=== PATIENT | male | born 1955 | race Caucasian/White ===

== ENCOUNTER 2017-08-15 05:05 | Day surgery (SDC) | payer OTHER ==
[2017-08-11 11:42] VITALS: BMI 32.1
--- NOTE | 2017-08-15 08:18 | HP ---
[facility] - Chief Complaint Chief Complaint: left knee pain - Past Medical History Allergies/Adverse Reactions: Allergies Allergy/AdvReac Type Severity Reaction Status Date / Time No Known Drug Allergies Allergy Verified 08/11/17 11:42 - Current Medications Current Medications: Home Medications Medication Instructions Recorded Phenytoin Na Extended [Dilantin -] 500 mg PO DAILY 08/11/17 Oxycodone HCl/Acetaminophen 1 tab PO Q6H #20 tablet MDD 4 08/15/17 [Percocet 5-325 mg Tablet] [facility] Physical Exam - Physical Examination General Appearance: Well Nourished, Well Developed, Alert & Oriented x3 ENT: Clear Lung: Normal air movement Heart: Regular rate & rhythm Extremities: Other (left knee- + swelling, + ttp, decr rom, +mcmurrays, nvi MRI + mmt) Neurological: Intact, Alert, Oriented [facility] Impression/Plan - Impression/Plan Impression: left knee internal derangement Operative Procedure: left knee arthroscopy Date to be Performed: 08/15/17
[2017-08-15] MEDS ORDERED: oxyCODONE HCL 5 MG TABLET PO PRN ×2 (11:10)
[2017-08-15] MEDS ORDERED: ONDANSETRON 4 MG/2 ML VIAL IVPUSH PRN (11:10)
[2017-08-15] MEDS ORDERED: LACTATED RINGERS SOLUTION 1,000 ML IV SCH (11:15)
[2017-08-15] MEDS ORDERED: LIDOCAINE 1%/EPI 1:100000 (20 ML MULTI DOSE VIAL) ONE (11:21)
[2017-08-15] MEDS ORDERED: MIDAZOLAM HCL 2 MG/2 ML SINGLE DOSE VIAL ONE (12:34)
[2017-08-15] MEDS ORDERED: PROPOFOL 20 ML ONE (12:34)
[2017-08-15] MEDS ORDERED: LIDOCAINE 1%/EPI 1:100000 (20 ML MULTI DOSE VIAL) IJ ONE (12:40)
[2017-08-15] MEDS ORDERED: BUPIVACAINE HCL/PF (5 MG/ML) 30 ML VIAL IJ ONE ×3 (12:40→12:55)
[2017-08-15] MEDS ORDERED: LIDOCAINE HCL 1%, 10 MG/ML (20ML VIAL) PNB ONE ×2 (12:45→12:55)
[2017-08-15] MEDS ORDERED: LIDOCAINE HCL 1%, 10 MG/ML (20ML VIAL) INF ONE (12:50)
--- NOTE | 2017-08-15 13:07 | OP ---
Operative Note - Note: Operative Date: 08/15/17 ([facility]) Pre-Operative Diagnosis: left knee internal derangement Operation: left knee arthroscopy with PMM Post-Operative Diagnosis: Same as Pre-op Surgeon: Jarvis Osborne General Maintenance Technician: Cabrera Milan Anesthesiologist/CONTINUOUS YARN DYEING MACHINE OPERATOR: Crow Alvarez Anesthesia: General, Local Specimens Removed: shavings Estimated Blood Loss (mls): 5 Operative Report Dictated: Yes
--- NOTE | 2017-08-15 14:12 | SPEC ---
DATE OF OPERATION: 08/15/2017 PREOPERATIVE DIAGNOSIS: Internal derangement, left knee. POSTOPERATIVE DIAGNOSIS: Internal derangement, left knee. PROCEDURE: Left knee arthroscopy, partial medial meniscectomy. SURGICAL ATTENDING: Jarvis Osborne MD SENIOR OFFICER: No executive chef assistant. ANESTHESIA: General with LMA. CLOSURE: Nylon 4-0. COMPLICATIONS: None. CONDITION: To recovery room in stable condition. DESCRIPTION OF OPERATIVE PROCEDURE: Patient was taken to the operating room on August 15, 2017. General anesthesia with LMA was administered by the anesthesiologist. The left lower extremity was prepped and draped in the usual sterile fashion. The medial and lateral infrapatellar portal sites were infiltrated with 1% Xylocaine with epinephrine. Both portals were then made with a 15 blade followed by a blunt trocar. The scope was placed in the lateral infrapatellar portal and up into the suprapatellar pouch. The knee was inflated with a cocktail of 10 mL of 1% Xylocaine, 10 mL of 0.5% Marcaine, and 20 mL of arthroscopic saline. This was allowed to sit in the knee for a few minutes to allow the anesthetic to work intraarticularly. The scope was placed in the lateral infrapatellar portal and up into the suprapatellar pouch. The pouch was visualized to be clean. The medial and lateral gutters were visualized to be clean. The undersurface of the patella and trochlea were visualized to be intact. With valgus stress on the knee, the medial compartment was entered. The medial meniscus was visualized, probed, and found to have a complex tear of the posterior horn. This was debrided back to smooth stable meniscal tissue using a meniscal biter and arthroscopic shaver. The medial femoral condyle was run and found to be intact as well as the medial tibial plateau. At 90 degrees, the ACL was visualized, probed, and found to be intact. In the figure-4 position, the lateral compartment was entered. The lateral meniscus was visualized, probed, and found to be intact. The lateral femoral condyle was run and found to be intact as was the lateral tibial plateau. The knee was irrigated with copious amounts of irrigation and then the fluid was drained. The inferomedial portal was closed then with 4-0 nylon. Prior to pulling the trocar from the lateral infrapatellar portal, 20 mL of 0.5% Marcaine was infused into the knee for postoperative analgesia. The trocar was then pulled and the incision was closed with 4-0 nylon suture. A sterile pressure dressing was applied. Patient awakened from anesthesia and transferred to recovery in stable condition. No complication. Estimated blood loss negligible. Olegario BARCENAS/[id number]
[2017-08-15 15:59] VITALS: BP 120/70; PULSE 68
[2017-08-15 17:16] VITALS: TEMP 98.5
--- NOTE | 2017-08-19 14:11 | PATH ---
Surgical Pathology Report Patient Name: LUCIA WILBURN [facility]. Rec. #: [id number] /Age/Gender: 1955 (Age: 62) / M Account: [id number] Location: [facility] Taken: 08/15/2017 Received: 08/15/2017 Reported: 08/19/2017 Physicians: Jarvis Osborne M.D. Specimen(s) Received LEFT KNEE SHAVINGS Clinical History Left knee tear Final Diagnosis LEFT KNEE, SHAVINGS: SYNOVIAL TISSUE AND FIBROCARTILAGINOUS TISSUE WITH DEGENERATIVE CHANGE. Electronically Signed García Orozco M.D. Gross Description Received in formalin, labeled "left knee shavings," is a 4.0 x 2.0 x 0.3 cm. aggregate of espitia-yellow soft tissue fragments. A entry level account representative portion is submitted in one cassette. /08/15/2017 saudi/08/15/2017
== END 2017-08-15 15:59 | disposition home or self-care (01) ==
LOC: JASU-SURG 05:05
PROVIDERS: ATTEND Orthopaedic Surgery
PROC: 0SBD4ZZ Excision of Left Knee Joint, Percutaneous Endoscopic Approach (ICD-10-PCS; principal; 2017-08-15 12:30)
DX: M23.307 Other meniscus derangements, unspecified meniscus, left knee (principal)
CPT/HCPCS: 88304-TC; 94760; 97116-GP

== ENCOUNTER 2020-08-04 04:19 | Day surgery (SDC) | payer OTHER ==
[2020-08-04] MEDS ORDERED: BUPIVACAINE HCL 150 ML ONE (07:16)
[2020-08-04] MEDS ORDERED: LIDOCAINE 1%/EPI 1:100000 (50 ML MULTI DOSE VIAL) ONE (07:21)
[2020-08-04] MEDS ORDERED: MIDAZOLAM HCL 2 MG/2 ML SINGLE DOSE VIAL ONE (07:53)
[2020-08-04] MEDS ORDERED: PROPOFOL 20 ML ONE (07:53)
[2020-08-04] MEDS ORDERED: SUCCINYLCHOLINE CHLORIDE 200 MG/10 ML SYRINGE ONE (07:54)
[2020-08-04] MEDS ORDERED: LIDOCAINE 1%/EPI 1:100000 (20 ML MULTI DOSE VIAL) INF ONE (08:20)
[2020-08-04] MEDS ORDERED: LIDOCAINE 1%/EPI 1:100000 (20 ML MULTI DOSE VIAL) IJ ONE (08:20)
[2020-08-04] MEDS ORDERED: BUPIVACAINE HCL/PF 0.5% (5MG/ML) 10 ML VIAL IJ ONE ×2 (08:20→08:40)
[2020-08-04] MEDS ORDERED: ONDANSETRON 4 MG/2 ML VIAL IVPUSH PRN (08:49)
[2020-08-04] MEDS ORDERED: oxyCODONE HCL 5 MG TABLET PO PRN (08:49)
[2020-08-04] MEDS ORDERED: LACTATED RINGERS SOLUTION 1,000 ML IV SCH (09:00)
[2020-08-04 10:20] VITALS: PULSE 71
[2020-08-04 10:28] VITALS: BP 143/96; TEMP 97.7
== END 2020-08-04 11:16 | disposition home or self-care (01) ==
LOC: JASU-SURG 04:19
PROVIDERS: ATTEND Orthopaedic Surgery
PROC: 0SBC4ZZ Excision of Right Knee Joint, Percutaneous Endoscopic Approach (ICD-10-PCS; principal; 2020-08-04 08:00)
DX: M23.221 Derangement of posterior horn of medial meniscus due to old tear or injury, right knee (principal)
CPT/HCPCS: 88304-TC; 94760

== ENCOUNTER 2022-01-22 07:35 | Day surgery (SDC) | payer OTHER, MEDICARE ==
[2022-01-22] MEDS ORDERED: CEFAZOLIN 2 GM in DEXTROSE 5%-WATER - 50 ML IVPB ONE (08:23)
[2022-01-22] MEDS ORDERED: TRANEXAMIC ACID 1000 MG/10 ML VIAL IVPUSH ONE (08:23)
[2022-01-22] MEDS ORDERED: ROPIVACAINE HCL 0.5% 30ML VIAL ONE (08:25)
[2022-01-22] MEDS ORDERED: MIDAZOLAM HCL 2 MG/2 ML SINGLE DOSE VIAL ONE (08:25)
[2022-01-22] MEDS ORDERED: VANCOMYCIN 1,000 MG VIAL (RESTRICTED TO ID ONLY) ONE (08:32)
[2022-01-22] MEDS ORDERED: ceFAZolin SODIUM 1 GM VIAL ONE (08:32)
[2022-01-22 08:33] VITALS: BMI 32.5
[2022-01-22] MEDS ORDERED: CELECOXIB 200 MG CAPSULE PO ONE (09:00)
[2022-01-22] MEDS ORDERED: TRANEXAMIC ACID 1000 MG/10 ML VIAL ONE (09:07)
[2022-01-22] MEDS ORDERED: PROPOFOL 80 ML ONE (09:08)
[2022-01-22] MEDS ORDERED: BUPIVACAINE HCL 50 ML ONE (09:12)
[2022-01-22] MEDS ORDERED: MAG HYDROX/AL HYDROX/SIMETH 30 ML UNIT-DOSE CUP PO PRN (10:11)
[2022-01-22] MEDS ORDERED: ONDANSETRON 4 MG/2 ML VIAL IVPUSH PRN (10:11)
[2022-01-22] MEDS ORDERED: LACTATED RINGERS SOLUTION 1,000 ML IV SCH (10:15)
[2022-01-22] MEDS ORDERED: VANCOMYCIN 1,000 MG VIAL (RESTRICTED TO ID ONLY) IVPB ONE (11:14)
[2022-01-22] MEDS: oxyCODONE HCL 5 MG TABLET PO PRN (17:20)
[2022-01-22] MEDS: CEFAZOLIN SODIUM 2 GM in DEXTROSE 5%-WATER 100 ML IVPB SCH (17:21)
[2022-01-22] MEDS ORDERED: ACETAMINOPHEN 500 MG TABLET (FP) PO PRN (19:43)
[2022-01-22] MEDS: oxyCODONE HCL 10 MG SUSTAINED ACTING TABLET PO SCH (21:28)
[2022-01-22] MEDS: SENNOSIDES/DOCUSATE COMBO (SENNA PLUS) TABLET (UD) PO SCH (21:29)
[2022-01-23] MEDS: oxyCODONE HCL 5 MG TABLET PO PRN ×2 (00:28→07:02)
[2022-01-23] MEDS: CEFAZOLIN SODIUM 2 GM in DEXTROSE 5%-WATER 100 ML IVPB SCH (02:03)
[2022-01-23] MEDS ORDERED: HYDROmorphone HCl 2 MG/ML VIAL IVPB PRN (02:25)
[2022-01-23] MEDS ORDERED: ASPIRIN 325 MG TABLET PO SCH (08:00)
[2022-01-23 08:15] LABS: HEMATOCRIT 39.6 % (35.4-49); HEMOGLOBIN 13.9 G/dL (11.7-16.9); MCH 33.1 pg (25.7-33.7); MCHC 35.1 g/dl (32.0-35.9); MEAN CELL VOLUME 94.4 fl (80-96); MEAN PLT VOLUME 7.8 fl (7.5-11.1); PLATELET COUNT 158.2 10^3/uL (134-434); RBC 4.19 10^6/uL (4.00-5.60); RDW 13.5 % (11.9-15.9); WHITE BLOOD COUNT 7.7 10^3/uL (4.0-10.8)
[2022-01-23] MEDS: oxyCODONE HCL 10 MG SUSTAINED ACTING TABLET PO SCH (09:38)
[2022-01-23] MEDS: SENNOSIDES/DOCUSATE COMBO (SENNA PLUS) TABLET (UD) PO SCH (09:39)
[2022-01-23] MEDS ORDERED: MULTIVITAMINS (DAILY MVI) TABLET (FP) PO SCH (10:00)
[2022-01-23] MEDS ORDERED: PHENYTOIN NA EXTENDED 100 MG CAPSULE (FP) PO SCH (10:00)
[2022-01-23] MEDS ORDERED: PANTOPRAZOLE 40 MG TABLET PO SCH (10:00)
[2022-01-23 14:19] VITALS: BP 130/73; PULSE 101; RESP 19; TEMP 99.7
== END 2022-01-23 14:56 | disposition home health service (06) ==
LOC: FASUSAT 07:35 → FM/S 13:12 → FASUSAT 01-23 14:56
PROVIDERS: ATTEND Orthopaedic Surgery
PROC: 8E0Y0CZ Robotic Assisted Procedure of Lower Extremity, Open Approach (ICD-10-PCS; 2022-01-22)
PROC: 0SR90J9 Replacement of Right Hip Joint with Synthetic Substitute, Cemented, Open Approach (ICD-10-PCS; principal; 2022-01-22 10:27)
DX: M16.11 Unilateral primary osteoarthritis, right hip (principal)
CPT/HCPCS: 20985; 27130; C1776; S2900; 36415; 73502-TC-RT-FY; 85027; 88305-TC; 88311-TC; 94760; 97010-GP; 97116-GP; 97162-GP; C1713